=== PATIENT | female | born 1975 | race Caucasian/White ===

== ENCOUNTER 2018-03-28 22:15 | Emergency (ER) | payer OTHER ==
[2018-03-28] MEDS: IBUPROFEN 800 MG TABLET. PO (23:10)
[2018-03-28] MEDS: HYDROcodone/APAP 5/325MG 1 TAB TABLET PO (23:10)
== END 2018-03-28 23:35 | disposition home or self-care (01) ==
LOC: ER 22:15
DX: S63.501A Unspecified sprain of right wrist, initial encounter (principal); Z88.8 Allergy status to other drugs, medicaments and biological substances; X50.1XXA Overexertion from prolonged static or awkward postures, initial encounter; Y93.89 Activity, other specified; Y92.009 Unspecified place in unspecified non-institutional (private) residence as the place of occurrence of the external cause; Y99.8 Other external cause status
CPT/HCPCS: 29125; 73090; 73110; 99284

== ENCOUNTER 2018-05-02 13:26 | Emergency (ER) | payer OTHER ==
[2018-05-02 13:54] LABS: ADD MAN DIFF? NO
[2018-05-02 13:57] LABS: BASO # 0.1 x10^3/uL (0.0-0.2); BASO % 1 % (0-3); EOS # 0.1 x10^3/uL (0.0-0.7); EOS % 2 % (0-3); HEMATOCRIT 39.2 % (36.0-47.0); LYMPH # 2.4 x10^3/uL (1.0-4.8); LYMPH % 33 % (24-48); MEAN CORPUSCULAR HEMOGLOBIN 36 pg (25-35); MEAN CORPUSCULAR HGB CONC 36 g/dL (31-37); MEAN CORPUSCULAR VOLUME 102 fL (79-100); MONO # 0.5 x10^3/uL (0.0-1.1); MONO % 7 % (0-9); NEUT # 4.2 x10^3uL (1.8-7.7); NEUT % 58 % (31-73); PLATELET COUNT 263 x10^3/uL (140-400); RED BLOOD COUNT 3.85 x10^6/uL (3.50-5.40); RED CELL DISTRIBUTION WIDTH 13.6 % (11.5-14.5); WHITE BLOOD COUNT 7.3 x10^3/uL (4.0-11.0)
[2018-05-02 14:12] LABS: ANION GAP 12 (6-14); BLOOD UREA NITROGEN 17 mg/dL (7-20); BUN/CREATININE RATIO 24 (6-20); CALCIUM 8.8 mg/dL (8.5-10.1); CARBON DIOXIDE 24 mmol/L (21-32); CHLORIDE 103 mmol/L (98-107); CREATININE 0.7 mg/dL (0.6-1.0); GFR 91.8; GLUCOSE 147 mg/dL (70-99); POTASSIUM 3.4 mmol/L (3.5-5.1); SODIUM 139 mmol/L (136-145)
[2018-05-02 14:13] LABS: ETHANOL 50 mg/dL (0-10)
[2018-05-02 14:18] LABS: ALBUMIN 3.8 g/dL (3.4-5.0); ALBUMIN/GLOBULIN RATIO 1.1 (1.0-1.7); ALK PHOS 91 U/L (46-116); ALT (SGPT) 24 U/L (14-59); AST (SGOT) 16 U/L (15-37); LIPASE 205 U/L (73-393); MAGNESIUM 1.9 mg/dL (1.8-2.4); TOTAL BILIRUBIN 0.3 mg/dL (0.2-1.0); TOTAL PROTEIN 7.4 g/dL (6.4-8.2)
[2018-05-02 14:20] LABS: TROPONINI < 0.017 ng/mL (0.000-0.055)
[2018-05-02] MEDS: ONDANSETRON PF 4 MG/2 ML VIAL. IV (14:26)
[2018-05-02] MEDS: IV NORMAL SALINE 1000ML BAG 1,000 ML IV (14:26)
[2018-05-02] MEDS: MECLIZINE HCL 12.5 MG TABLET. PO (14:27)
[2018-05-02 14:37] LABS: NT-PRO BNP 70 pg/mL (0-124)
[2018-05-02 14:37] LABS: CKMB MASS < 0.5 ng/mL (0.0-3.6); CREATINE KINASE 78 U/L (26-192)
== END 2018-05-02 16:28 | disposition home or self-care (01) ==
LOC: ER 13:26
DX: R42 Dizziness and giddiness (principal); Z72.89 Other problems related to lifestyle; Z87.891 Personal history of nicotine dependence; Z88.8 Allergy status to other drugs, medicaments and biological substances
CPT/HCPCS: 36415; 70450; 71045; 80053; 82553; 83690; 83735; 83880; 84484; 85025; 93005; 96361; 96374; 99285-25; G0480; J2405; J7030; J8597

== ENCOUNTER 2018-06-06 19:31 | Emergency (ER) | payer SELFPAY ==
[~2018-06-06] VITALS: Ht 175.3 cm; Wt 72.6 kg
[~2018-06-06 19:31] MED LIST: IBUP-1060 PO; MECL25TA3 PO
[2018-06-06 19:58] VITALS: BP 114/77
== END 2018-06-06 20:10 | disposition left against medical advice (07) ==
LOC: ER 19:31
DX: S99.912A Unspecified injury of left ankle, initial encounter (principal); Z53.21 Procedure and treatment not carried out due to patient leaving prior to being seen by health care provider; Y08.89XA Assault by other specified means, initial encounter; Y93.89 Activity, other specified; Y92.89 Other specified places as the place of occurrence of the external cause; Y99.8 Other external cause status

== ENCOUNTER 2018-09-14 18:00 | Emergency (ER) | payer OTHER ==
[~2018-09-14] VITALS: Ht 175.3 cm; Wt 68.0 kg
[2018-09-14 18:11] VITALS: BP 124/82
[2018-09-14] MEDS ORDERED: LIDOCAINE 2%/EPI 1:100,000 20 ML VIAL. IJ ONE (18:30)
[2018-09-14] MEDS ORDERED: NEOMY/BACITR/POLYMYXIN OINT PACKET. TP ONE (18:30)
[2018-09-14] MEDS ORDERED: CLINDAMYCIN HCL 150 MG CAPSULE. PO ONE (18:30)
[2018-09-14] MEDS ORDERED: CLIN300C8 PO (19:30)
[2018-09-14] MEDS ORDERED: HYDR-3164 PO (19:30)
--- NOTE | 2018-09-14 19:30 | PHYS DOC ---
Past Medical History Past Medical History: Fibromyalgia, Other Additional Past Medical Histor: VERTIGO, fibromyalgia Past Surgical History: Other Additional Past Surgical Histo: CERVICAL NECK SX, ECTOPIC X 2 Smoking: Cigarettes Alcohol Use: Occasionally Drug Use: None Adult General Chief Complaint Chief Complaint: ABSCESS HPI HPI 43-year-old female presents with lesion to right hip times one month which is progressively become more swollen and tender over last week. Patient does report she recently tried to decompress at home with a needle and was able to get some yellow drainage. Denies fever or chills. Reports last tetanus booster less than 5 years ago. Review of Systems Review of Systems Constitutional: Denies fever or chills [] GI: Denies abdominal pain, nausea, vomiting, bloody stools or diarrhea [] Musculoskeletal: Denies back pain or joint pain [] Integument: Reports abscess and erythema to right hip Neurologic: Denies headache, focal weakness or sensory changes [] Complete systems were reviewed and found to be within normal limits, except as documented in this note. Current Medications Current Medications Current Medications Medications (Trade) Dose Ordered Sig/Darian Start Time Stop Time Status Last Admin Dose Admin Clindamycin HCl (Cleocin) 300 mg 1X ONCE 09/14/18 18:30 09/14/18 18:31 DC 09/14/18 18:46 300 MG Lidocaine/ Epinephrine (LIDOCAINE 2%-EPI 1:100,000 multi-dose) 20 ml 1X ONCE 09/14/18 18:30 09/14/18 18:31 DC 09/14/18 18:47 20 ML Neomycin/ Polymyxin/ Bacitracin (Triple Antibiotic Ointment) 1 pkt 1X ONCE 09/14/18 18:30 09/14/18 18:31 DC 09/14/18 18:46 1 PKT Allergies Allergies Allergies Coded Allergies Type Severity Reaction Last Updated Verified rizatriptan Allergy Intermediate Hives 03/28/18 Yes venlafaxine Allergy Intermediate Hives 03/28/18 Yes Physical Exam Physical Exam Constitutional: Well developed, well nourished, no acute distress, non-toxic appearance. [] HENT: Normocephalic, atraumatic[] Eyes: Conjunctiva normal, no discharge. [] Neck: Normal range of motion, supple. [] Skin: Warm, dry, 2cm abscess to right lateral buttock with surrounding erythema , fluctuance noted Neurologic: Alert and oriented X 3, no focal deficits noted. [] Psychologic: Affect normal, judgement normal, mood normal. [] Current Patient Data Vital Signs Vital Signs Date Time Temp Pulse Resp B/P (MAP) Pulse Ox O2 Delivery O2 Flow Rate FiO2 09/14/18 18:11 98.2 83 18 124/82 (96) 98 Room Air 98.2 EKG EKG [] Radiology/Procedures Radiology/Procedures [] Course & Med Decision Making Course & Med Decision Making Patient presents with history of present illness and physical exam consistent for abscess. Tetanus up-to-date. Empiric antibiotics initiated. I&D performed. Wound irrigated and dressed. Patient stable for discharge with outpatient follow -up with PCP. Discussed findings and plan with patient and family, who acknowledge understanding and agreement. Dragon Disclaimer Dragon Disclaimer This electronic medical record was generated, in whole or in part, using a voice recognition dictation system. Incision and Drainage Incision and Drainage : Site: right buttocks Blade Size: 15 I & D Procedure: sterile dressing applied Progress Verbal consent obtained. Time out performed. ChloraPrep utilized. Wound anesthetized with 2% lidocaine with epinephrine 5 mL's. Horizontal incision made with 15 blade. Purulent discharge noted. Wound expressed and explored with curved Abigail clamp. Copious irrigation utilized 200 mL's. Wound dressed with Neosporin ointment and sterile bandage. Patient tolerated procedure well and without difficulty. Departure Departure Impression: Primary Impression: Abscess Disposition: 01 HOME, SELF-CARE Condition: STABLE Referrals: NO PCP (PCP) Patient Instructions: Abscess, Care After Scripts Clindamycin Hcl (CLINDAMYCIN HCL) 300 Mg Capsule 1 CAP PO TID for Infection, #21 CAP Prov: MIN DE OLIVEIRA DO 09/14/18 Hydrocodone/Apap 5-325 (NORCO 5-325 TABLET) 1 Each Tablet 1 TAB PO PRN Q6HRS PRN for PAIN, #6 TAB 0 Refills Prov: MIN DE OLIEVIRA DO 09/14/18 MIN DE OLIVEIRA DO Sep 14, 2018 19:30
== END 2018-09-14 19:39 | disposition home or self-care (01) ==
LOC: ER 18:00
DX: L02.415 Cutaneous abscess of right lower limb (principal); F17.210 Nicotine dependence, cigarettes, uncomplicated; Z88.8 Allergy status to other drugs, medicaments and biological substances
CPT/HCPCS: 10060; 99283; J3490